=== PATIENT | female | born 1945 | race Caucasian/White ===

== ENCOUNTER 2016-08-05 20:16 | Inpatient (IN) | payer MEDICARE, OTHER ==
[~2016-08-05 20:16] MED LIST: ACTOS45 MG PO; AMARYL4 M1 PO; ASPIR 8181 M1 PO; ATIVAN0.5 M1 PO; BISACODYL5 M1 PO; COLACE100 M1 PO; FLONASE ALLERG9.9 ML; GLUCOPHAGE1000 M1 PO; GLYBURIDE5 MG PO; LEVEMIR100 UNITS/ SC; MEDROL4 M2 PO; MILK OF MAGNESIA PO; MIRALAX17 G2 PO; NORCO 5-325 TA1 EACH PO; NOVOLOG100 UNITS/ SC; NUCYNTA100 M1 PO; PRAVASTATIN SOD20 M1 PO; PRINIVIL10 M1 PO; PROAIR HFA8.5 GM INH; SENOKOT-S TABL1 EACH PO; TYLENOL EXTRA500 M1 PO; TYLENOL325 M2 PO; ULTRAM50 M1 PO; XARELTO15 M1 PO; XARELTO20 M1 PO; ZOFRAN4 M2 PO
[2016-08-05] MEDS ORDERED: ZYLOPRIM100 M1 PO (20:35)
[2016-08-05] MEDS ORDERED: CLARITIN10 M6 PO (20:37)
[2016-08-05] MEDS ORDERED: NUCYNTA ER150 M1 PO (20:39)
[2016-08-05] MEDS ORDERED: NOVOLOG100 UNITS/ SC (20:51)
[2016-08-05 20:59] LABS: BASO % 2.4 % (0-2); HCT-HEMATOCRIT 26.4 % (34.0-49.0); HGB-HEMOGLOBIN 8.6 gm/dl (12.0-15.5); LYMPH % 16.8 % (20-45); LYMPH ABSOLUTE COUNT 0.2 tho/cmm (0.8-4.5); MCH (MEAN CORPUSCULAR HGB) 27.7 pg (28.0-32.0); MCHC MEAN CORPUSCULAR HGB CONC 32.6 % (32.0-36.0); MCV (MEAN CELL VOLUME) 84.9 fl (82.0-96.0); MEAN PLATELET VOLUME 11.4 cmc (9.4-12.4); MONO % 39.2 % (0-12); MONOCYTE ABSOLUTE COUNT 0.5 tho/cmm (0.0-1.2); NEUTROPHILS % 41.6 % (40-80); PLATELET COUNT 132 tho/cmm (150-450); RED BLOOD COUNT 3.11 mil/cmm (4.00-5.20); RED CELL DISTRIBUTION WIDTH 15.6 % (12.4-16.4)
[2016-08-05 21:21] LABS: ANION GAP 12 mmol/L (0-20); BLOOD UREA NITROGEN 19 mg/dl (6-24); CALCIUM 7.9 mg/dl (8.5-10.5); CARBON DIOXIDE-VENOUS 27 mmol/L (22-32); CHLORIDE 96 mmol/l (96-110); CREATININE 0.72 mg/dl (0.50-1.10); GLUCOSE 76 mg/dL (70-110); POTASSIUM 3.2 mmol/L (3.7-5.1); SODIUM 132 mmol/L (135-145); eGFR VALUE FOR BLACK >90 mL/Min
[2016-08-05 21:39] LABS: PROCALCITONIN 2.82 ng/ml (0.05-0.09)
[2016-08-05 22:05] LABS: URINE BILIRUBIN NEGATIVE (NEG); URINE BLOOD MODERATE (NEG); URINE GLUCOSE (UA) NEGATIVE (NEG); URINE KETONE NEGATIVE (NEG); URINE LEUKOCYTE ESTERASE NEGATIVE (NEG); URINE NITRITE POSITIVE (NEG); URINE PROTEIN MODERATE (NEG); URINE SPECIFIC GRAVITY 1.015 (1.003-1.030)
[2016-08-05 22:06] LABS: URINE APPEARANCE HAZY; URINE COLOR YELLOW
[2016-08-05 22:11] LABS: URINE BACTERIA 4+
[2016-08-05 22:15] LABS: URINE RBC 0-1 /[HPF] (0-5)
[2016-08-05 22:16] LABS: URINE EPITHELIAL CELLS 0-1 /[HPF] (0-10)
[2016-08-06 00:58] LABS: INR 1.8 INR (0.9-1.1); PROTHROMBIN TIME 20.7 SECONDS (9.0-13.6)
[2016-08-06 01:11] LABS: ALB/GLOB RATIO 0.5 (0.8-2.0); ALBUMIN 1.8 g/dl (3.5-5.0); ALKALINE PHOSPHATASE 63 U/L (33-138); ALT/SGPT 14 U/L (12-78); ANION GAP 13 mmol/L (0-20); AST/SGOT 14 U/L (10-40); BILIRUBIN,TOTAL 0.5 mg/dl (0-1.5); BLOOD UREA NITROGEN 20 mg/dl (6-24); CALCIUM 7.3 mg/dl (8.5-10.5); CARBON DIOXIDE-VENOUS 26 mmol/L (22-32); CHLORIDE 100 mmol/l (96-110); CREATININE 0.78 mg/dl (0.50-1.10); GLUCOSE 105 mg/dL (70-110); SODIUM 136 mmol/L (135-145); eGFR VALUE FOR BLACK 89 mL/Min
[2016-08-06 01:14] LABS: POTASSIUM 2.8 mmol/L (3.7-5.1)
[2016-08-06 04:54] LABS: HCT-HEMATOCRIT 25.2 % (34.0-49.0); HGB-HEMOGLOBIN 8.1 gm/dl (12.0-15.5); MCH (MEAN CORPUSCULAR HGB) 27.6 pg (28.0-32.0); MCHC MEAN CORPUSCULAR HGB CONC 32.1 % (32.0-36.0); MCV (MEAN CELL VOLUME) 85.7 fl (82.0-96.0); MEAN PLATELET VOLUME 10.7 cmc (9.4-12.4); NEUTROPHIL-AUTOMATED 1.4 tho/cmm (1.6-8.0); PLATELET COUNT 131 tho/cmm (150-450); RED BLOOD COUNT 2.94 mil/cmm (4.00-5.20); RED CELL DISTRIBUTION WIDTH 15.8 % (12.4-16.4)
[2016-08-06 05:02] LABS: WHITE BLOOD COUNT 2.6 tho/cmm (4.0-10.0)
[2016-08-06 05:07] LABS: ALB/GLOB RATIO 0.5 (0.8-2.0); ALBUMIN 1.8 g/dl (3.5-5.0); ALKALINE PHOSPHATASE 66 U/L (33-138); ALT/SGPT 15 U/L (12-78); ANION GAP 13 mmol/L (0-20); AST/SGOT 12 U/L (10-40); BILIRUBIN,TOTAL 0.4 mg/dl (0-1.5); BLOOD UREA NITROGEN 19 mg/dl (6-24); CALCIUM 7.4 mg/dl (8.5-10.5); CARBON DIOXIDE-VENOUS 25 mmol/L (22-32); CHLORIDE 101 mmol/l (96-110); CREATININE 0.87 mg/dl (0.50-1.10); GLUCOSE 105 mg/dL (70-110); POTASSIUM 3.3 mmol/L (3.7-5.1); SODIUM 136 mmol/L (135-145); eGFR VALUE FOR BLACK 78 mL/Min
[2016-08-06 06:28] LABS: ESR-ERYTHROCYTE SED RATE >140 mm/hr (0-30)
[2016-08-06 07:39] LABS: BAND % 37 % (0-20); WBC MORPHOLOGY TOXIC GRANULATION
[2016-08-06 09:16] LABS: NEUTROPHIL ABSOLUTE COUNT 0.5 tho/cmm (1.6-8.0); NEUTROPHIL-AUTOMATED 0.5 tho/cmm (1.6-8.0); WHITE BLOOD COUNT 1.3 tho/cmm (4.0-10.0)
[2016-08-07 03:27] LABS: HCT-HEMATOCRIT 25.1 % (34.0-49.0); HGB-HEMOGLOBIN 8.1 gm/dl (12.0-15.5); MCH (MEAN CORPUSCULAR HGB) 27.8 pg (28.0-32.0); MCHC MEAN CORPUSCULAR HGB CONC 32.3 % (32.0-36.0); MCV (MEAN CELL VOLUME) 86.3 fl (82.0-96.0); MEAN PLATELET VOLUME 10.7 cmc (9.4-12.4); NEUTROPHIL-AUTOMATED 4.7 tho/cmm (1.6-8.0); PLATELET COUNT 189 tho/cmm (150-450); PROTHROMBIN TIME 23.9 SECONDS (9.0-13.6); RED BLOOD COUNT 2.91 mil/cmm (4.00-5.20); RED CELL DISTRIBUTION WIDTH 15.8 % (12.4-16.4)
[2016-08-07 03:51] LABS: BASO % 0.4 % (0-2); EOS % 0.6 % (0-7); IMMATURE GRANULOCYTES ABSOLUTE 0.69 tho/cmm (0-0.03); IMMATURE GRANULOCYTES PERCENT 10.1 % (0-0.3); LYMPH % 9.6 % (20-45); LYMPH ABSOLUTE COUNT 0.7 tho/cmm (0.8-4.5); MONO % 9.9 % (0-12); MONOCYTE ABSOLUTE COUNT 0.7 tho/cmm (0.0-1.2); NEUTROPHIL ABSOLUTE COUNT 4.7 tho/cmm (1.6-8.0); NEUTROPHILS % 69.4 % (40-80); WHITE BLOOD COUNT 6.8 tho/cmm (4.0-10.0)
[2016-08-07 03:55] LABS: ALB/GLOB RATIO 0.5 (0.8-2.0); ALKALINE PHOSPHATASE 80 U/L (33-138); ALT/SGPT 21 U/L (12-78); ANION GAP 14 mmol/L (0-20); AST/SGOT 16 U/L (10-40); BILIRUBIN,TOTAL 0.3 mg/dl (0-1.5); BLOOD UREA NITROGEN 18 mg/dl (6-24); C-REACTIVE PROTEIN 18.5 mg/dl (0-0.9); CALCIUM 7.6 mg/dl (8.5-10.5); CARBON DIOXIDE-VENOUS 24 mmol/L (22-32); CHLORIDE 106 mmol/l (96-110); CREATININE 0.86 mg/dl (0.50-1.10); GLUCOSE 124 mg/dL (70-110); POTASSIUM 3.7 mmol/L (3.7-5.1); SODIUM 140 mmol/L (135-145); eGFR VALUE FOR BLACK 79 mL/Min
[2016-08-07 09:26] LABS: POTASSIUM 3.8 mmol/L (3.7-5.1)
[2016-08-09 05:42] LABS: ANION GAP 12 mmol/L (0-20); BLOOD UREA NITROGEN 9 mg/dl (6-24); CALCIUM 7.6 mg/dl (8.5-10.5); CARBON DIOXIDE-VENOUS 26 mmol/L (22-32); CHLORIDE 111 mmol/l (96-110); CREATININE 0.89 mg/dl (0.50-1.10); GLUCOSE 134 mg/dL (70-110); SODIUM 146 mmol/L (135-145); eGFR VALUE FOR BLACK 76 mL/Min
[2016-08-09 05:46] LABS: POTASSIUM 3.3 mmol/L (3.7-5.1)
[2016-08-09] MEDS ORDERED: TAMIFLU75 MG/CAP PO (11:46)
[2016-08-09] MEDS ORDERED: BACTRIM DS TAB1 EAC2 PO (11:53)
[2016-08-09] MEDS ORDERED: MUCINEX600 M1 PO (11:53)
[2016-08-09] MEDS ORDERED: IPRAT-ALBUT 0.5-3 ML AERO NEB (11:56)
[2016-11-24] MEDS ORDERED: METOPROLOL TART25 M1 PO (14:00)
[2016-11-24] MEDS ORDERED: PROTONIX40 M2 PO (14:00)
[2016-11-26] MEDS ORDERED: LEVAQUIN750 M1 PO (16:36)
[2016-11-26] MEDS ORDERED: K-TAB ER20 ME1 PO (16:37)
[2016-11-26] MEDS ORDERED: MAGNESIUM OXID400 M1 PO (16:38)
[2016-11-26] MEDS ORDERED: PHOS-NAK PACKET1 PK1 PO (16:38)
[2016-11-28] MEDS ORDERED: ASPIRIN EC81 MG PO (15:47)
[2017-01-02] MEDS ORDERED: ALLOPURINOL300 M1 PO (17:33)
[2017-01-04] MEDS ORDERED: PHOS-NAK PACKET1 PK1 (09:36)
[2017-01-04] MEDS ORDERED: DELTASONE20 MG PO (09:36)
[2017-01-10] MEDS ORDERED: COMPAZINE10 MG PO (20:25)
== END 2016-08-09 15:50 | DRG 871 ==
LOC: EDMED 20:16 → EMR2 22:52 → PCUA 23:51
PROVIDERS: Emergency Medicine; Family Medicine; ADMIT Internal Medicine
PROC: 05HC33Z Insertion of Infusion Device into Left Basilic Vein, Percutaneous Approach (ICD-10-PCS; principal; 2016-08-06)
DX: A41.9 Sepsis, unspecified organism (principal); D61.1 Drug-induced aplastic anemia; C83.30 Diffuse large B-cell lymphoma, unspecified site; N39.0 Urinary tract infection, site not specified; E87.1 Hypo-osmolality and hyponatremia; D69.6 Thrombocytopenia, unspecified; B96.20 Unspecified Escherichia coli [E. coli] as the cause of diseases classified elsewhere; Z68.41 Body mass index [BMI] 40.0-44.9, adult; E11.9 Type 2 diabetes mellitus without complications; E66.01 Morbid (severe) obesity due to excess calories; E83.52 Hypercalcemia; E87.6 Hypokalemia; I10 Essential (primary) hypertension; J09.X2 Influenza due to identified novel influenza A virus with other respiratory manifestations; J45.909 Unspecified asthma, uncomplicated; M54.9 Dorsalgia, unspecified; D70.9 Neutropenia, unspecified; D64.9 Anemia, unspecified; R50.81 Fever presenting with conditions classified elsewhere; Z79.01 Long term (current) use of anticoagulants; Z79.4 Long term (current) use of insulin; Z51.11 Encounter for antineoplastic chemotherapy; Z86.718 Personal history of other venous thrombosis and embolism
CPT/HCPCS: C1751; J1815; J2543; J3370; J3480; J7030; J7050